=== PATIENT | male | born 1970 | race Caucasian/White ===

== ENCOUNTER 2020-09-20 15:00 | Outpatient (RCR) | payer OTHER, SELFPAY ==
--- NOTE | 2020-09-05 12:58 | MHC.OT.OEV ---
[address] [phone] F: [phone] Occupational Therapy Evaluation Diagnosis: Right wrist sprain Date of Onset: 07/25/20 Attending Provider: Dr Gonzalez Prescribed Treatment: Eval and Treat History of Current Condition: 50 yo male presents w/ persistant pain in right hand and wrist over the past 6 weeks. He is relating it to boxing/overuse and has since stopped doing those activities, but has not felt relief. No imaging done at this time, he has been referred to OT for further assessment and treatment of wrist sprain. 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[place], active with boxing and working out, Ind w/ all aspects Living Situation, Family and/or Social Support: Lives w/ an two school aged children Current Level of Function and Occupation Self Care, Employment, Leisure: Unable to work out, pain w/ carrying work bag, difficulty and pain w/ hammering, opening a jar Sleep: Wakes up in pain occasionally Driving: No issues Pain Assessment Pain Score: 2 Pain Scale Used: Numeric (0 - 10) Pain Location and Description: 2/10 dull ache 6/10 sharp pain w/ pressure and heavy use Aggravating Factors: Pressing up from objects/seat Alleviating Factors: No relief w/ ibuprophen Only brief relief w/ ice/heat in the moment Nerve assessment Ulnar Nerve: WFL Median Nerve: WFL Radial Nerve: WFL Sensory Assessment Temperature: WFL Light Touch: WFL Proprioception: WFL Edema Assessment Upper Extremity: Wrist at ulnar styloid L 17.5 R 18.0 Dexterity Assessment Dexterity: WFL AROM(PROM) Strength Shoulder Flexion: Extension: Abduction: Internal Rotation: External Rotation: Comments: Rounded shoulders, range WFL Flexion: Extension: Abduction: Internal Rotation: External Rotation: Comments: Elbow Flexion: Extension: Pronation: Supination: Comments: WFL Flexion: Extension: Pronation: Supination: Comments: Wrist Flexion: R 70 L 64 Extension: R 54 L 60 Ulnar Deviation: Radial Deviation: Comments: Flexion: R 5/5 L 5/5 Extension: R 5/5 L 5/5 Ulnar Deviation: Radial Deviation: Comments: Thumb Thumb CMC Flexion: Thumb MCP Flexion: Thumb IP Flexion: Radial Abduction: [place] Abduction: [place] ([place]ji 0-10): Comments: Digits Index MCP: PIP: DIP: Long MCP: PIP: DIP: Ring MCP: PIP: DIP: Small MCP: PIP: DIP: Comments: WFL Gross Grasp: R 120 L 145 Lateral Pinch: R 23 L 22 Two-Point Pinch: R 15 L 15 Three-Jaw David: R 20 L 20 Comments: Patient Education Primary Language: Portuguese [place] Pinner Required: No Current Knowledge: Understands information with skills for self-management Teaching Method: Demonstration Verbal Education Needs Identified on Evaluation: Disease Information Equipment Use Exercise Pain Safety How did patient/family demonstrate learning? Patient demonstrates Patient verbalizes Barriers to Learning: None Readiness for Learning: Accepting Who was educated? Patient Comments: Joint protection, initiation of exercises, ionto w/ dex Plan of Care Assessment: 50 yo right hand dominant male presents with persistent pain in right wrist, likely due to use use and repetitive movements w/ boxing. He has not had imaging to this point, but on assessment has tenderness to palpate scapholunate region of wrist and is reporting higher pain w/ full range flex and ext and pushing off from hard surfaces. Lunate rises dorsally with flexion moreso than left wrist. He will benefit from trial OT at this time w/ education on joint protection and activity modification, he has been given wrist widget for protection of DRUJ and we have initiated ionto w/ dex for management of pain and inflammation. If no change or worsened pain after course of OT, I would recommend further diagnostic imaging of possible scapholunate injury. STG Duration: 2 weeks Short Term Goals: Pt to report ease at night time and not waking from sleep in pain/discomfort QuickDASH score <20 Ind w/ isometric strengthening program w/ good understanding of progression of strengthening while respecting pain <2/10 w/ moderate household activities LTG Duration: Correction Goals: same as above. Frequency and Duration: The patient will be seen 3x/wk for 2 weeks Treatment Plan: Therapeutic Exercise Therapeutic Activity Home Exercise Program Splinting Patient Education Edema Control ADL Training Iontophoresis Paraffin MHP Cold Packs Kinesiotaping Electronically Signed By: Sue Wharton OTR/L Reviewed/agree with student documentation: N/A Therapist: Please sign and return to therapist, Thank you for your referral.
--- NOTE | 2020-09-30 11:42 | MHC.OT.DC ---
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 He is reporting significantly less pain but still w/ high pain at times. Good understanding of home program for self management. Electronically Signed By: Sue Wharton OTR/L Please Sign and return to therapist, thank you for your referral.
== END 2020-09-30 11:43 | disposition other institution (70) ==
LOC: HO.OT 15:00
PROVIDERS: PCP Internal Medicine; Visit Provider Internal Medicine
DX: M25.531 Pain in right wrist (principal)
CPT/HCPCS: 97033; 97110; 97165; 97760

== ENCOUNTER 2022-09-29 11:36 | Outpatient (REF) | payer OTHER, SELFPAY ==
[2022-09-29 12:33] LABS: Influenza A PCR NEGATIVE (Negative); Influenza B PCR NEGATIVE (Negative); Resp Syncy Virus RNA Qual PCR NEGATIVE (Negative); SARS COV2 PCR INHOUSE NEGATIVE (Negative)
== END 2022-09-29 11:37 | disposition home or self-care (01) ==
LOC: HO.LNP 11:36
PROVIDERS: Visit Provider Physician Assistant
DX: J06.9 Acute upper respiratory infection, unspecified (principal)
CPT/HCPCS: 0241U